=== PATIENT | male | born 1965 | race Caucasian/White ===

== ENCOUNTER 2018-02-09 11:03 | Emergency (ER) | payer SELFPAY ==
[2018-02-09 11:12] VITALS: BP 159/117; PULSE 97; RESP 16; TEMP 98.9; O2SAT 98
--- NOTE | 2018-02-09 11:55 | RADRPT ---
EXAM DATE/TIME: 02/09/2018 11:30 [facility] COMPARISON: No previous studies available for comparison. INDICATIONS : Problems with equalibrium RADIATION DOSE: 56.35 CTDIvol (mGy) MEDICAL HISTORY : Hypertension. SURGICAL HISTORY : None. ENCOUNTER: Initial ACUITY: 1 day PAIN SCALE: 5/10 LOCATION: cranial TECHNIQUE: Multiple contiguous axial images were obtained of the head. Using automated exposure control and adj ustment of the mA and/or kV according to patient size, radiation dose was kept as low as reasonably a chievable to obtain optimal diagnostic quality images. DICOM format image data is available electro nically for review and comparison. FINDINGS: CEREBRUM: The ventricles are normal for age. No evidence of midline shift, mass lesion, hemorrhage or acute in farction. No extra-axial fluid collections are seen. POSTERIOR FOSSA: The cerebellum and brainstem are intact. The 4th ventricle is midline. The cerebellopontine angle i s unremarkable. EXTRACRANIAL: The visualized portion of the orbits is intact. SKULL: The calvaria is intact. No evidence of skull fracture. CONCLUSION: 1. No acute intracranial abnormality. Jean Marie Eldridge MD on February 09, 2018 at 11:46 Board Certified Radiologist. This report was verified electronically.
--- NOTE | 2018-02-09 12:12 | RADRPT ---
EXAM DATE/TIME: 02/09/2018 12:05 [facility] COMPARISON: No previous studies available for comparison. INDICATIONS : Shortness of breath with dizziness. MEDICAL HISTORY : Hypertension. SURGICAL HISTORY : None. ENCOUNTER: Initial ACUITY: 1 day PAIN SCORE: 0/10 LOCATION: Bilateral chest FINDINGS: PA and lateral views of the chest demonstrate the lungs to be symmetrically aerated without evidence of mass, infiltrate or effusion. The cardiomediastinal contours are unremarkable. Degenerative vicente ges thoracic spine CONCLUSION: Negative for an acute process. Willie Valdez MD FACR on February 09, 2018 at 12:09 Board Certified Radiologist. This report was verified electronically.
--- NOTE | 2018-02-09 12:44 | RADRPT ---
EXAM DATE/TIME: 02/09/2018 12:17 [facility] COMPARISON: No previous studies available for comparison. INDICATIONS : Right leg swelling. MEDICAL HISTORY : Hypertension. SURGICAL HISTORY : None. ENCOUNTER: Initial ACUITY: 2 weeks PAIN SCORE: 2/10 LOCATION: Right leg. TECHNIQUE: Venous ultrasound of the leg was performed from the inguinal ligament to the proximal calf. Real-gayathri e, color Doppler and spectral tracing, compression and augmentation techniques were used. FINDINGS: There is normal compressibility of the deep venous system from the inguinal region to the proximal ca lf. No echogenic clot is seen in the lumen of the common femoral, femoral, popliteal, and posterior tibial veins. There is a normal response of the venous system to proximal and distal augmentation an d respiration. There is some edema in the subcutaneous soft tissues of the lower leg. CONCLUSION: No evidence of DVT. Kristian Huerta MD on February 09, 2018 at 12:42 Board Certified Radiologist. This report was verified electronically.
[2018-02-09 12:52] VITALS: BP 137/94; PULSE 87; RESP 18; O2SAT 100
[2018-02-09] MEDS ORDERED: CARB200T PO (13:07)
[2018-02-09] MEDS ORDERED: LIPI20TA PO (13:07)
[2018-02-09] MEDS ORDERED: AMLO10TA2 PO (13:07)
[2018-02-09] MEDS ORDERED: DOXE100C4 PO (13:07)
--- NOTE | 2018-02-09 13:17 | PD ---
HPI Chief Complaint: Dizziness Time Seen by Provider: 12:52 Travel History International Travel<30 days: No Contact w/Intl Traveler<30days: No Traveled to known affect area: No History of Present Illness HPI 52-year-old male patient with history of hypertension, bipolar disorder, presents to the ER today for several days history of dizziness, states that he feels like he is not quite balanced, had trouble getting up after sitting down at the pool today, and complains of a left-sided chest pains last night which are now gone. He denies any fevers, vomiting, or any other symptoms. Modifying Factors: None Associated Signs & Symptoms: Dizziness, disequilibrium, chest pain Risk Factors: None PFSH Past Medical History Bipolar Disorder: Yes Cardiovascular Problems: Yes (HTN) High Cholesterol: Yes Hypertension: Yes Social History Alcohol Use: No Tobacco Use: No Substance Use: No Allergies-Medications (Allergen,Severity, Reaction): Coded Allergies: No Known Allergies (Unverified , 02/09/18) Reported Meds & Prescriptions Reported Meds & Active Scripts Active Reported Amlodipine (Amlodipine Besylate) 10 Mg Tab 10 Mg PO DAILY Carbamazepine 200 Mg Tab 200 Mg PO DAILY Doxepin (Doxepin HCl) 100 Mg Cap 100 Mg PO HS Lipitor (Atorvastatin Calcium) 20 Mg Tab 20 Mg PO HS Review of Systems Except as stated in HPI: all other systems reviewed are Neg Physical Exam Narrative GENERAL: Well-developed middle-age male patient currently in mild distress. Awake and oriented 3. Ataxia with walking. SKIN: Focused skin assessment warm/dry. HEAD: Atraumatic. Normocephalic. EYES: Pupils equal and round. No scleral icterus. No injection or drainage. ENT: No nasal bleeding or discharge. Mucous membranes pink and moist. NECK: Trachea midline. No JVD. CARDIOVASCULAR: Regular rate and rhythm. No murmur appreciated. RESPIRATORY: No accessory muscle use. Clear to auscultation. Breath sounds equal bilaterally. GASTROINTESTINAL: Abdomen soft, non-tender, nondistended. Hepatic and splenic margins not palpable. MUSCULOSKELETAL: No obvious deformities. No clubbing. No cyanosis. No edema. NEUROLOGICAL: Awake and alert. No obvious cranial nerve deficits. Motor grossly within normal limits. Normal speech. No pronator drift. Mild ataxia. Negative Romberg. PSYCHIATRIC: Appropriate mood and affect; insight and judgment normal. Data Data Last Documented VS Vital Signs Date Time Temp Pulse Resp B/P (MAP) Pulse Ox O2 Delivery O2 Flow Rate FiO2 02/09/18 12:57 83 18 02/09/18 12:52 137/94 (108) 100 Room Air 02/09/18 11:12 98.9 Orders Orders Electrocardiogram (02/09/18 11:15) Ckmb (Isoenzyme) Profile (02/09/18 11:15) Complete Blood Count With Diff (02/09/18 11:15) Comprehensive Metabolic Panel (02/09/18 11:15) Prothrombin Time / Inr (Pt) (02/09/18 11:15) Act Partial Throm Time (Ptt) (02/09/18 11:15) Troponin I (02/09/18 11:15) Lipase (02/09/18 11:15) Chest, Pa & Lat (02/09/18 11:15) Ct Brain W/O Iv Contrast(Rout) (02/09/18 ) Us Leg Venous Doppler (02/09/18 12:18) Meclizine (Antivert) (02/09/18 13:30) CKMB (02/09/18 13:00) CKMB% (02/09/18 13:00) Ed Discharge Order (02/09/18 14:27) Labs Laboratory Tests Test 02/09/18 13:00 White Blood Count 7.8 TH/MM3 Red Blood Count 5.28 MIL/MM3 Hemoglobin 16.2 GM/DL Hematocrit 48.9 % Mean Corpuscular Volume 92.6 FL Mean Corpuscular Hemoglobin 30.8 PG Mean Corpuscular Hemoglobin Concent 33.2 % Red Cell Distribution Width 14.0 % Platelet Count 283 TH/MM3 Mean Platelet Volume 8.2 FL Neutrophils (%) (Auto) 60.0 % Lymphocytes (%) (Auto) 25.0 % Monocytes (%) (Auto) 11.7 % Eosinophils (%) (Auto) 2.6 % Basophils (%) (Auto) 0.7 % Neutrophils # (Auto) 4.7 TH/MM3 Lymphocytes # (Auto) 1.9 TH/MM3 Monocytes # (Auto) 0.9 TH/MM3 Eosinophils # (Auto) 0.2 TH/MM3 Basophils # (Auto) 0.1 TH/MM3 CBC Comment DIFF FINAL Differential Comment Prothrombin Time 10.0 SEC Prothromb Time International Ratio 1.0 RATIO Activated Partial Thromboplast Time 21.7 SEC Blood Urea Nitrogen 11 MG/DL Creatinine 1.12 MG/DL Random Glucose 97 MG/DL Total Protein 7.8 GM/DL Albumin 3.7 GM/DL Calcium Level 8.8 MG/DL Alkaline Phosphatase 74 U/L Aspartate Amino Transf (AST/SGOT) 28 U/L Alanine Aminotransferase (ALT/SGPT) 33 U/L Total Bilirubin 0.3 MG/DL Sodium Level 139 MEQ/L Potassium Level 4.1 MEQ/L Chloride Level 103 MEQ/L Carbon Dioxide Level 25.6 MEQ/L Anion Gap 10 MEQ/L Estimat Glomerular Filtration Rate 69 ML/MIN Total Creatine Kinase 153 U/L Creatine Kinase MB 2.2 NG/ML Troponin I LESS THAN 0.02 NG/ML Lipase 78 U/L MDM Medical Decision Making Medical Screen Exam Complete: Yes Emergency Medical Condition: Yes Medical Record Reviewed: Yes Interpretation(s) EKG shows normal sinus rhythm at a rate of 86 bpm with no signs of acute ST elevations or depressions. Laboratory Tests Test 02/09/18 13:00 Monocytes (%) (Auto) 11.7 % (0.0-8.0) Activated Partial Thromboplast Time 21.7 SEC (24.3-30.1) Estimat Glomerular Filtration Rate 69 ML/MIN (>89) Troponin I LESS THAN 0.02 NG/ML Last 24 hours Impressions Lower Extremity Ultrasound 02/09/18 1218 Signed Impressions: Service Date/Time: Friday, February 09, 2018 12:17 - CONCLUSION: No evidence of DVT. Kristian Huerta MD Chest X-Ray 02/09/18 1115 Signed Impressions: Service Date/Time: Friday, February 09, 2018 12:05 - CONCLUSION: Negative for an acute process. Willie Valdez MD FACR Head CT 02/09/18 0000 Signed Impressions: Service Date/Time: Friday, February 09, 2018 11:30 - CONCLUSION: 1. No acute intracranial abnormality. Jean Marie Eldridge MD Differential Diagnosis Dizziness, ataxia, chest pains: Dehydration versus ACS versus dysrhythmias versus metabolic issues versus CVA versus acute intracranial processes Narrative Course CT the brain did not show any signs of acute intracranial processes. Patient had some mild ataxia but was able to walk and Romberg testing was negative. He has no pronator drift. Face is symmetrical and he is able to talk without problems. He has no focal neurological deficits. Lab work was fairly unremarkable for any significant metabolic issues and EKG did not show any dysrhythmias. Patient was given meclizine in the ER. On reevaluation at 2:30 PM, he is feeling improved and is able to walk better. At this point, symptoms were discussed with the patient again and he states he does feel like he is in a big ball when he is driving, feels like things spin around a little bit when he changes position. I think that this is more likely to be a vertigo at this point. Patient does have some chest discomfort last night but reports none now. I have offered to admit him as an observation for further evaluation of chest pains but the patient is declining at this time. He should follow-up further with a embedded linux developer and a neurologist regarding these issues. My plan would be to release him with meclizine and follow-up to primary care doctor. Return for any worsening of symptoms as necessary. The plan has been discussed with him he states understanding. Diagnosis Primary Impression: Dizziness Additional Impression: Vertigo Med/Other Pt SpecificInfo: Prescription(s) given Scripts Meclizine (Meclizine) 25 Mg Tab 25 MG PO DIRECTED Y for VERTIGO, #15 TAB 0 Refills Prov: Adal Perry MD 02/09/18 Disposition: 01 DISCHARGE HOME Condition: Stable Adal Perry MD Feb 09, 2018 13:16
[2018-02-09 13:28] LABS: AUTOMATED NEUTROPHIL # 4.7 TH/MM3 (1.8-7.7); BASOPHIL # 0.1 TH/MM3 (0-0.2); BASOPHIL % 0.7 % (0.0-2.0); EOSINOPHIL # 0.2 TH/MM3 (0-0.4); EOSINOPHIL % 2.6 % (0.0-4.0); HEMATOCRIT 48.9 % (39.0-51.0); HEMOGLOBIN 16.2 GM/DL (13.0-17.0); LYMPHOCYTE # 1.9 TH/MM3 (1.0-4.8); MEAN CELL VOLUME 92.6 FL (80.0-100.0); MEAN CORPUSCULAR HEMOGLOBIN 30.8 PG (27.0-34.0); MEAN CORPUSCULAR HGB CONC 33.2 % (32.0-36.0); MEAN PLATELET VOLUME 8.2 FL (7.0-11.0); MONO % 11.7 % (0.0-8.0); MONOCYTE # 0.9 TH/MM3 (0-0.9); PLATELET COUNT 283 TH/MM3 (150-450); RED BLOOD COUNT 5.28 MIL/MM3 (4.50-5.90); WHITE BLOOD COUNT 7.8 TH/MM3 (4.0-11.0)
[2018-02-09] MEDS ORDERED: MECLIZINE HCL 25 MG TAB PO ONE (13:30)
[2018-02-09 13:55] LABS: ALKALINE PHOSPHATASE 74 U/L (45-117); ALT (GPT) 33 U/L (12-78); TOTAL BILIRUBIN ADULT 0.3 MG/DL (0.2-1.0); TOTAL PROTEIN 7.8 GM/DL (6.4-8.2); TROPONIN I LESS THAN 0.02 NG/ML (0.02-0.05)
[2018-02-09 13:56] LABS: ALBUMIN 3.7 GM/DL (3.4-5.0); AST (GOT) 28 U/L (15-37); BICARBONATE 25.6 MEQ/L (21.0-32.0); BLOOD UREA NITROGEN 11 MG/DL (7-18); CALCIUM 8.8 MG/DL (8.5-10.1); CHLORIDE 103 MEQ/L (98-107); CREATININE 1.12 MG/DL (0.60-1.30); GLOMERULAR FILTRATION RATE 69 ML/MIN (>89); GLUCOSE,RANDOM 97 MG/DL (74-106); SODIUM (NA) 139 MEQ/L (136-145)
[2018-02-09] MEDS ORDERED: MECL-62 PO (14:33)
--- NOTE | 2018-02-10 16:08 | EKG ---
Date Performed: 02/09/2018 Time Performed: 12:50:50 PTAGE: 52 years EKG: Sinus rhythm POSSIBLE LEFT ATRIAL ENLARGEMENT BORDERLINE ECG NO PREVIOUS TRACING DOCTOR: Blade Dietz Interpretating Date/Time 02/10/2018 16:07:40
== END 2018-02-09 14:40 | disposition home or self-care (01) ==
LOC: NED 11:03 → NEPE 14:40
DX: R42 Dizziness and giddiness (principal); R94.31 Abnormal electrocardiogram [ECG] [EKG]; R07.9 Chest pain, unspecified; I10 Essential (primary) hypertension; F31.9 Bipolar disorder, unspecified; E78.00 Pure hypercholesterolemia, unspecified
CPT/HCPCS: 70450; 71046; 80053; 82550; 82552; 83690; 84484; 85025; 85610; 85730; 93005; 93971